=== PATIENT | female | born 1955 | race Two or more races ===

== ENCOUNTER 2023-10-14 18:35 | Emergency (ER) | payer OTHER ==
[~2023-10-14] VITALS: Ht 152.4 cm; Wt 72.6 kg
[~2023-10-14 18:35] MED LIST: ANTIVERT25 M1 PO; ENALAPRIL MALEAT5 MG; EVISTA60 MG
[2023-10-14] MEDS ORDERED: GLUMETZA500 MG (18:46)
[2023-10-14] MEDS ORDERED: 0.9 % SODIUM CHLORIDE 1,000 ML IV SCH (19:15)
[2023-10-14] MEDS ORDERED: KETOROLAC TROMETHAMINE 30 MG VIAL IV ONE (19:15)
[2023-10-14] MEDS ORDERED: ONDANSETRON HCL 2 MG/ML VIAL IV ONE (19:15)
[2023-10-14 19:38] LABS: HEMATOCRIT 37.6 % (36.0-45.00); HEMOGLOBIN 12.3 g/dL (12.0-15.00); MEAN CELL VOLUME 81.4 fL (80.00-100.00); MEAN CORPUSCULAR HEMOGLOBIN 26.6 pg (27.00-32.0); MEAN CORPUSCULAR HGB CONC 32.7 g/dl (32.0-36.0); PLATELET COUNT 285 K/uL (150-450); RED BLOOD COUNT 4.61 M/uL (4.00-6.00); RED CELL DISTRIBUTION WIDTH 14.9 % (11.5-14.5)
[2023-10-14 20:08] LABS: ALBUMIN 3.7 gm/dL (3.4-5.0); BILIRUBIN TOTAL 0.34 mg/dL (0.3-1.2); CALCIUM 9.8 mg/dL (8.5-10.1); CREATININE SERUM 0.68 mg/dL (0.55-1.02); GFR 86.57; GLOBULINA 4.3 G/DL (2.4-3.5); POTASSIUM 3.76 mEq/L (3.5-5.1)
[2023-10-14 20:53] LABS: URINE APPEARANCE Turbid; URINE BILIRRUBIN Negative (NEGATIVE); URINE BLOOD Moderate; URINE COLOR Yellow; URINE GLUCOSE Negative (NEGATIVE); URINE KETONE Negative (NEGATIVE); URINE LEUKOCYTE Large; URINE NITRATE Negative; URINE PROTEIN Trace (NEGATIVE); URINE UROBILINOGEN 0.2 E.U./dl
[2023-10-14 20:56] LABS: URINE BACTERIA 1650.5 uL (0.0-1933); URINE EPITHELIAL CELLS 77.1 uL (0.0-38.8); URINE RBC 224.7 uL (0.0-20.8); URINE WBC 4563.7 uL (0.0-23.2)
[2023-10-14 21:09] LABS: URINE CAST 1.22 uL (0.0-1.40)
[2023-10-14] MEDS ORDERED: TAMS0.4C PO (21:13)
[2023-10-14] MEDS ORDERED: ZOFRAN8 MG PO (21:13)
[2023-10-14] MEDS ORDERED: CIPRO500 MG PO (21:13)
[2023-10-14] MEDS ORDERED: KETO10TA2 PO (21:13)
[2023-10-14] MEDS ORDERED: TAMSULOSIN HCL 0.4 MG CAP PO ONE (21:15)
== END 2023-10-14 21:16 | disposition home or self-care (01) ==
LOC: ER 18:37
PROVIDERS: General Practice
DX: N20.9 Urinary calculus, unspecified (principal); R10.2 Pelvic and perineal pain
CPT/HCPCS: 36415; 74176; 96365; 96366; 99284; J1885; J2405; J7030

== ENCOUNTER 2023-10-19 07:25 | Outpatient (CLI) | payer OTHER ==
[~2023-10-19 07:25] MED LIST changes: +CIPRO500 MG PO; +GLUMETZA500 MG; +KETO10TA2 PO; +TAMS0.4C PO; +ZOFRAN8 MG PO
== END 2023-10-19 07:28 | disposition home or self-care (01) ==
LOC: RAD 07:25
PROVIDERS: ATTEND Urology
DX: N20.1 Calculus of ureter (principal)

== ENCOUNTER 2023-10-27 08:38 | Outpatient (CLI) | payer OTHER | END 2023-10-27 14:12 | disposition home or self-care (01) | LOC: LAB 08:38 → EKG 08:38 → LAB 14:12 | PROVIDERS: ATTEND Urology | DX: N20.0 Calculus of kidney (principal); N20.1 Calculus of ureter ==

== ENCOUNTER 2023-10-27 09:08 | Outpatient (CLI) | payer OTHER | END 2023-10-27 09:12 | disposition home or self-care (01) | LOC: RAD 09:08 | PROVIDERS: ATTEND Urology | DX: N20.0 Calculus of kidney (principal); N20.1 Calculus of ureter ==

== ENCOUNTER 2024-02-01 14:03 | Outpatient (CLI) | payer OTHER | END 2024-02-01 14:08 | disposition home or self-care (01) | LOC: RAD 14:03 | PROVIDERS: ATTEND Urology | DX: N20.1 Calculus of ureter (principal) ==

== ENCOUNTER 2025-01-30 12:36 | Outpatient (CLI) | payer OTHER | END 2025-01-30 12:40 | disposition home or self-care (01) | LOC: RAD 12:36 | PROVIDERS: ATTEND Urology | DX: N20.0 Calculus of kidney (principal) ==